=== PATIENT | female | born 1990 ===

== ENCOUNTER 2018-09-07 15:17 | Emergency (ER) | payer MEDICAID, OTHER ==
[2018-09-07 15:19] VITALS: BMI 35.5
[2018-09-07 15:34] VITALS: PULSE 84; RESP 13; TEMP 97.7
[2018-09-07] MEDS ORDERED: Alum-Mag Hydrox-Simethicone Susp (30 mL) PO STA (16:02)
--- NOTE | 2018-09-07 16:14 | ED PDOC ---
HPI: Chest Pain Time Seen by Provider: 09/07/18 15:44 Chief Complaint (Nursing): Abdominal Pain Chief Complaint (Provider): Chest Pain History Per: Patient History/Exam Limitations: no limitations Onset/Duration Of Symptoms: Days, Worse Since (x3 days) Current Symptoms Are (Timing): Still Present Additional Complaint(s): Patient is a 27 y/o female with no significant PMHx who presents to the ED for evaluation of chest pain for about a year. Patient reports epigastric and throat pain radiating from the chest. Patient states the pain has become more frequent, persistent, and intense over the past three days, thus, prompting her ED visit. Patient claims that when eating food she experiences pain because she feels like she has to push her food down. After eating the patient states the pain persists for two hours. In addition, patient complains of similar pain at night. Patient denies vomiting and any change in bowel movement or appetite. Of note, patient was recently seen by a automotive fleet supervisor and is scheduled for an endoscopy on 10/01/2018. In addition, patient took Omeprazole one week ago with no relief. PCP: Dr. Cathryn Greene Drawing Kiln Supervisor: Dr. Muniz Past Medical History Reviewed: Historical Data, Nursing Documentation, Vital Signs Vital Signs: Last Vital Signs Temp 97.7 F 09/07/18 15:33 Pulse 84 09/07/18 15:33 Resp 13 09/07/18 15:33 BP 138/76 09/07/18 15:33 Pulse Ox 100 09/07/18 15:33 - Medical History PMH: No Chronic Diseases - Surgical History Surgical History: Appendectomy, Tonsillectomy - Family History Family History: States: No Known Family Hx - Social History Current smoker - smoking cessation education provided: No Ex-Smoker (has not smoked in the last 12 months): No - Immunization History Hx Tetanus Toxoid Vaccination: No Hx Influenza Vaccination: No Hx Pneumococcal Vaccination: No - Home Medications Home Medications: Ambulatory Orders Medication Instructions Recorded Ca/Cholecalciferol/Fe/Folic 1 1 tab PO DAILY 03/18/15 [Basic's Vitamins] Dicyclomine [Bentyl] 20 mg PO QID PRN #20 tab 09/07/18 traMADol [Ultram] 50 mg PO TID PRN #15 tab 09/07/18 - Allergies Allergies/Adverse Reactions: Allergies Allergy/AdvReac Type Severity Reaction Status Date / Time No Known Allergies Allergy Verified 03/18/15 18:08 Review of Systems ROS Statement: Except As Marked, All Systems Reviewed And Found Negative (as per HPI) Constitutional: Positive for: Other (normal appetite) ENT: Positive for: Throat Pain. Negative for: Other (acid taste) Cardiovascular: Positive for: Chest Pain Gastrointestinal: Positive for: Abdominal Pain (epigastric), Other (normal bowel movement). Negative for: Vomiting Physical Exam - Reviewed Nursing Documentation Reviewed: Yes Vital Signs Reviewed: Yes - Physical Exam Appears: Positive for: No Acute Distress (well) Head Exam: Positive for: ATRAUMATIC, NORMAL INSPECTION, NORMOCEPHALIC Skin: Positive for: Warm, Dry Eye Exam: Positive for: EOMI, PERRL ENT: Negative for: Pharyngeal Erythema, Tonsillar Exudate Neck: Positive for: Painless ROM, Supple Cardiovascular/Chest: Positive for: Regular Rate, Rhythm Respiratory: Positive for: Normal Breath Sounds (clear auscultation bilaterally). Negative for: Wheezing, Respiratory Distress Gastrointestinal/Abdominal: Positive for: Tenderness (epigastrum and right upper quadrant tenderness). Negative for: Mass, Guarding, Rebound, Other (Salazar's Sign) Back: Positive for: Normal Inspection. Negative for: L CVA Tenderness, R CVA Tenderness, Muscle Spasm Extremity: Positive for: Normal ROM. Negative for: Deformity Lymphatic: Negative for: Adenopathy Neurologic/Psych: Positive for: Alert. Negative for: Motor/Sensory Deficits - Laboratory Results Result Diagrams: 09/07/18 16:34 09/07/18 16:34 - ECG O2 Sat by Pulse Oximetry: 100 (RA) Pulse Ox Interpretation: Normal Medical Decision Making Medical Decision Making: Time: 1556 Impression: Chest Pain DDx includes but not limited to esophageal spasm, esophageal or chest mass, reflux, gallbladder disease, and peptic ulcer disease. Plan: CMP Lipase Urine Urine Dipstick CBC CXR Lidocaine 2% Viscous 10 ml PO Maalox 30 ml PO Pepcid 20 mg PO IV Insertion Gallbladder & Hepatic Ulcer [US] Labs unremarkable Accession No. : [id number] Patient Name / ID : MILDRED IRIZARRY / [id number] Exam Date : 09/07/2018 17:12:48 ( Approved ) Study Comment : Sex / Age : F / 27Y Creator : Markie Chapman MD Dictator : Markie Chapman MD Cooking Casing And Drying Supervisor : Source Water Protection Specialist : Markie Chapman MD Approver2 : Report Date : 09/07/2018 18:13:14 My Comment : Date of service: 09/07/2018 HISTORY: upper abdominal pain COMPARISON: None. TECHNIQUE: Sonographic evaluation of the right upper quadrant of the abdomen. FINDINGS: LIVER: Measures 11.9 cm in length. Normal echogenicity of the liver parenchyma. No mass. No intrahepatic bile duct dilatation. GALLBLADDER: Unremarkable. No gallstones. COMMON BILE DUCT: Measures 3 mm. No stones. No dilatation. PANCREAS: Unremarkable as visualized. No mass. No ductal dilatation. RIGHT KIDNEY: Measures 11.0 x 5.0 x 5.0 cm in length. Normal echogenicity. No calculus, mass, or hydronephrosis. AORTA: No aneurysmal dilatation. IVC: Unremarkable. OTHER FINDINGS: None . IMPRESSION: Unremarkable right upper quadrant ultrasound DW pt findings and plan of care. Encourage to keep appointment for GI and attempt to call for more urgent followup. Pt continues to appear well in no distress Scribe Attestation: Documented by Prosper King, acting as a scribe for Kiki Sanchez MD. Provider Scribe Attestation: All medical record entries made by the Scribe were at my direction and personally dictated by me. I have reviewed the chart and agree that the record accurately reflects my personal performance of the history, physical exam, medical decision making, and the department course for this patient. I have also personally directed, reviewed, and agree with the discharge instructions and disposition. Disposition - Clinical Impression Clinical Impression: Esophageal spasm Counseled Patient/Family Regarding: Studies Performed, Diagnosis, Need For Followup, Rx Given - Disposition Disposition: Routine/Home Disposition Time: 18:25 Condition: STABLE Additional Instructions: CALL YOUR ASSOCIATE WEB DEVELOPER TOMORROW TO SCHEDULE FOLLOWUP APPOINTMENT THIS WEEK CONTINUE OMEPRAZOLE PRESCRIBED TAKE BENTYL FOR PAIN. TAKE TRAMADOL FOR SEVERE PAIN ONLY Prescriptions: Dicyclomine [Bentyl] 20 mg PO QID PRN #20 tab PRN Reason: abdominal pain traMADol [Ultram] 50 mg PO TID PRN #15 tab PRN Reason: SEVERE PAIN ONLY Instructions: Dysphagia (DC)
[2018-09-07] MEDS ORDERED: Alum-Mag Hydrox-Simethicone Susp (30 mL) ONE (16:36)
[2018-09-07 16:39] LABS: BASO # 0.1 K/uL (0.0-0.2); EOS # 0.5 K/uL (0.0-0.7); EOS % 6.1 % (0.0-4.0); HEMOGLOBIN 12.9 g/dL (12.0-16.0); LYMPH # 3.8 K/uL (1.0-4.3); LYMPH % 48.7 % (20.0-40.0); MEAN CELL VOLUME 86.9 fl (81.0-99.0); MEAN CORPUSCULAR HGB CONC 33.4 g/dL (33.0-37.0); MEAN PLATELET VOLUME 9.3 fl (7.2-11.7); MONO # 0.8 K/uL (0.0-0.8); MONO % 9.6 % (0.0-10.0); NEUT # 2.7 K/uL (1.8-7.0); NEUT % 34.6 % (50.0-75.0); NRBC % 0.1 % (0.0-0.0); RBC 4.46 Mil/uL (3.80-5.20); RED CELL DISTRIBUTION WIDTH 13.9 % (11.5-14.5); WHITE BLOOD COUNT 7.9 K/uL (4.8-10.8)
[2018-09-07 16:50] LABS: ALB/GLOB RATIO 1.1 (1.0-2.1); ALBUMIN 4.8 g/dL (3.5-5.0); BLOOD UREA NITROGEN 15 mg/dl (7-17); CALCIUM 10.1 mg/dL (8.4-10.2); GFR NON-AFRICAN AMERICAN > 60; LIPASE 145 U/L (23-300)
[2018-09-07 16:53] LABS: ALT/SGPT 15 U/L (9-52); AST/SGOT 28 U/L (14-36)
[2018-09-07 17:11] LABS: SQUAMOUS EPITHIAL 18 /hpf (0-5); URINE BACTERIA RARE (<OCC); URINE BILIRUBIN NEGATIVE (NEGATIVE); URINE BLOOD NEGATIVE (NEGATIVE); URINE CLARITY CLOUDY (Clear); URINE COLOR YELLOW (YELLOW); URINE GLUCOSE (UA) NEG (NEGATIVE); URINE LEUKOCYTE ESTERASE NEG Leu/uL (Negative); URINE PROTEIN NEGATIVE (NEGATIVE); URINE UROBILINOGEN 0.2-1.0 mg/dL (0.2-1.0)
--- NOTE | 2018-09-07 18:16 | US ---
Date of service: 09/07/2018 HISTORY: upper abdominal pain COMPARISON: None. TECHNIQUE: Sonographic evaluation of the right upper quadrant of the abdomen. FINDINGS: LIVER: Measures 11.9 cm in length. Normal echogenicity of the liver parenchyma. No mass. No intrahepatic bile duct dilatation. GALLBLADDER: Unremarkable. No gallstones. COMMON BILE DUCT: Measures 3 mm. No stones. No dilatation. PANCREAS: Unremarkable as visualized. No mass. No ductal dilatation. RIGHT KIDNEY: Measures 11.0 x 5.0 x 5.0 cm in length. Normal echogenicity. No calculus, mass, or hydronephrosis. AORTA: No aneurysmal dilatation. IVC: Unremarkable. OTHER FINDINGS: None . IMPRESSION: Unremarkable right upper quadrant ultrasound
--- NOTE | 2018-09-07 18:17 | RAD ---
Date of service: 09/07/2018 HISTORY: chest pain COMPARISON: No prior. TECHNIQUE: Chest PA and lateral FINDINGS: LUNGS: No active pulmonary disease. PLEURA: No significant pleural effusion identified. No pneumothorax apparent. CARDIOVASCULAR: No aortic atherosclerotic calcification present. Normal cardiac size. No pulmonary vascular congestion. OSSEOUS STRUCTURES: No significant abnormalities. VISUALIZED UPPER ABDOMEN: Normal. OTHER FINDINGS: None. IMPRESSION: No active disease.
[2018-09-07 18:41] VITALS: BP 132/74; O2SAT 99
== END 2018-09-07 18:28 | disposition home or self-care (01) ==
LOC: H.ER 15:17
DX: K22.4 Dyskinesia of esophagus (principal); Z87.891 Personal history of nicotine dependence